=== PATIENT | female | born 1955 | race Caucasian/White ===

== ENCOUNTER 2016-12-26 19:44 | Observation (INO) | payer MEDICARE ==
--- NOTE | 2016-12-26 19:57 | ER Document Report ---
ED Medical Screen (RME) - General Stated Complaint: CHEST PAIN Notes: 61 yo female c/o intermittant chest pain x 30 minutes. left sided, nonradiating. no shortness of breath. no nausea. + HTN, + DM, NO cardiac hx. nonsmoker. pt received 4 325 ASA per EMS report. someone at [facility] gave ASA TRAVEL OUTSIDE OF THE [place] IN LAST 30 DAYS: No - Related Data Allergies/Adverse Reactions: acetaminophen [From Vicodin] Allergy (Verified 08/04/16 15:49) codeine phosphate [From Tylenol-Codeine] Allergy (Verified 08/04/16 15:49) hydrocodone bitartrate [From Vicodin] Allergy (Verified 08/04/16 15:49) Past Medical History - Past Medical History Cardiac Medical History: Reports: Hx Hypercholesterolemia, Hx Hypertension Endocrine Medical History: Reports: Hx Diabetes Mellitus Type 2 Past Surgical History: Reports: Hx Section, Hx Cholecystectomy, Hx Hysterectomy - Immunizations Hx Diphtheria, Pertussis, Tetanus Vaccination: Yes
[2016-12-26 20:47] LABS: ABSOLUTE BASOPHILS # (AUTO) 0.1 10^3/uL (0.0-0.2); ABSOLUTE EOSINOPHILS # (AUTO) 0.4 10^3/uL (0.0-0.6); ABSOLUTE LYMPHOCYTES (AUTO) 2.5 10^3/uL (0.5-4.7); ABSOLUTE MONOCYTES (AUTO) 0.5 10^3/uL (0.1-1.4); ABSOLUTE NEUT (AUTO) 2.9 10^3/uL (1.7-8.2); BASOPHILS % (AUTO) 0.8 % (0-2); EOSINOPHILS % (AUTO) 5.7 % (0-6); HEMOGLOBIN 10.4 g/dL (12.0-15.5); HGB HCT DIFFERENCE 0.2; LYMPHOCYTES % (AUTO) 39.9 % (13-45); MEAN CORPUSCULAR HEMOGLOBIN 29.4 pg (27.0-33.4); MEAN CORPUSCULAR HGB CONC 33.5 g/dL (32.0-36.0); MEAN CORPUSCULAR VOLUME 88 fl (80-97); MONOCYTES % (AUTO) 7.6 % (3-13); RED BLOOD COUNT 3.52 10^6/uL (3.72-5.28); RED CELL DISTRIBUTION WIDTH 13.8 % (11.5-14.0); WHITE BLOOD COUNT 6.3 10^3/uL (4.0-10.5)
[2016-12-26 21:10] LABS: ALANINE AMINOTRANSFERASE 27 U/L (9-52); ALBUMIN 4.4 g/dL (3.5-5.0); ALKALINE PHOSPHATASE 70 U/L (38-126); ANION GAP 14 (5-19); ASPARTATE AMINO TRANSFERASE 26 U/L (14-36); BILIRUBIN,TOTAL 0.8 mg/dL (0.2-1.3); BLOOD UREA NITROGEN 20 mg/dL (7-20); CALCIUM 9.3 mg/dL (8.4-10.2); CARBON DIOXIDE 25 mmol/L (22-30); CHLORIDE 104 mmol/L (98-107); CREATINE KINASE 208 U/L (30-135); CREATININE RESULT 1.19 mg/dL (0.52-1.25); GLUCOSE 253 mg/dL (75-110); POTASSIUM 4.4 mmol/L (3.6-5.0); SODIUM 143.2 mmol/L (137-145); TOTAL PROTEIN 7.1 g/dL (6.3-8.2)
[2016-12-26 21:19] LABS: CREATINE KINASE MB 1.12 ng/mL (<4.55); TROPONIN I < 0.012 ng/mL
--- NOTE | 2016-12-27 02:17 | ER Document Report ---
ED General - General Chief Complaint: Chest Pain > 30 Stated Complaint: CHEST PAIN Notes: Patient is a 61-year-old female presents with complaint of chest pain. Chest pain has been intermittent. She says when it occurs is left-sided pain that is nonradiating no fevers. No vomiting. No diarrhea. No difficulty breathing. Nothing seems to exacerbate the pain. No other complaints at this time. history of coronary disease. No history of recent stress test. TRAVEL OUTSIDE OF THE [place] IN LAST 30 DAYS: No - Related Data Allergies/Adverse Reactions: acetaminophen [From Vicodin] Allergy (Verified 08/04/16 15:49) codeine phosphate [From Tylenol-Codeine] Allergy (Verified 08/04/16 15:49) hydrocodone bitartrate [From Vicodin] Allergy (Verified 08/04/16 15:49) Past Medical History - Social History Smoking Status: Former Smoker Chew tobacco use (# tins/day): No Frequency of alcohol use: None Drug Abuse: None Family History: Reviewed & Not Pertinent Patient has suicidal ideation: No Patient has homicidal ideation: No - Past Medical History Cardiac Medical History: Reports: Hx Hypercholesterolemia, Hx Hypertension Endocrine Medical History: Reports: Hx Diabetes Mellitus Type 2 Renal/ Medical History: Denies: Hx Peritoneal Dialysis Past Surgical History: Reports: Hx Section, Hx Cholecystectomy, Hx Hysterectomy - Immunizations Hx Diphtheria, Pertussis, Tetanus Vaccination: Yes Review of Systems - Review of Systems Notes: My Normal Review Basic REVIEW OF SYSTEMS: CONSTITUTIONAL : Denies fever, chills, or sweats. Denies recent illness. EENT: Denies eye, ear, throat, or mouth pain or symptoms. Denies nasal or sinus congestion. CARDIOVASCULAR: Some chest pain RESPIRATORY: Denies cough, cold, or chest congestion. Denies shortness of breath, difficulty breathing, or wheezing. GASTROINTESTINAL: Denies abdominal pain. Denies nausea, vomiting, or diarrhea. Denies constipation. Last BM: MUSCULOSKELETAL: Denies neck or back pain or joint pain or swelling. SKIN: Denies rash or skin lesions. NEUROLOGICAL: Denies altered mental status or loss of consciousness. Denies headache. Denies weakness or paralysis or loss of use of either side. Denies problems with gait or speech. Denies sensory or motor loss. ALL OTHER SYSTEMS REVIEWED AND NEGATIVE. Physical Exam - Vital signs Vitals: Temp Pulse Resp BP Pulse Ox 98.0 F 71 20 159/82 H 100 12/26/16 19:57 12/26/16 19:57 12/26/16 19:57 12/26/16 19:57 12/26/16 19:57 - Notes Notes: General Appearance: Well nourished, alert, cooperative, no acute distress, no obvious discomfort. Well-appearing. Vitals: reviewed, See vital signs table. Head: no swelling or tenderness to the head Eyes: PERRL, EOMI, Conjuctiva clear Mouth: No decreasd moisture Chest wall: No reproducible tenderness to palpation of chest wall. Neck: Supple, no neck tenderness, No thyromegaly Lungs: No wheezing, No rales, No rhonci, No accessory muscle use, good air exchange bilaterally. Heart: Normal rate, Regular rythm, No murmur, no rub Abdomen: Normal BS, soft, No rigidity, No abdominal tenderness, No guarding, no rebound, no abdominal masses, no organomegaly Extremities: strength 5/5 in all extremities, good pulses in all extremities, no swelling or tenderness in the extremities, no edema. Skin: warm, dry, appropriate color, no rash Neuro: speech clear, oriented x 3, normal affect, responds appropriately to questions. Course - Vital Signs Vital signs: Temp Pulse Resp BP Pulse Ox 98.0 F 71 20 159/82 H 100 12/26/16 19:57 12/26/16 19:57 12/26/16 19:57 12/26/16 19:57 12/26/16 19:57 - Laboratory Result Diagrams: 12/26/16 20:25 12/26/16 20:25 Laboratory results interpreted by me: 12/26/16 12/26/16 20:25 20:25 RBC 3.52 L Hgb 10.4 L Hct 31.0 L Est GFR ( Amer) 56 L Est GFR (Non-Af Amer) 46 L Glucose 253 H Creatine Kinase 208 H - EKG Interpretation by Me Additional EKG results interpreted by me: 12/27/16 02:17 EKG is reviewed and interpreted by me. EKG shows normal sinus rhythm with rate of [address] segment elevation or depression. No ischemic T wave inversions. CT level, QRS duration, QTC intervals are within normal range. Old EKG for comparison is from 02/27/2016. - Transfer of Care Notes: 12/27/16 05:24 Patient is multiple risk factors for coronary disease including hypertension, diabetes, high cholesterol. She has been having intermittent chest pain. Currently she is chest pain-free. I did speak with Dr. Dailey who agrees to admit the patient. Patient agrees with plan to be admitted. Dictation of this chart was performed using voice recognition software; therefore, there may be some unintended grammatical errors. Discharge - Discharge Clinical Impression: Chest pain Qualifiers: Chest pain type: unspecified Qualified Code(s): R07.9 - Chest pain, unspecified Condition: Stable Disposition: ADMITTED OBSERVATION Admitting Provider: Ashlie Unit Admitted: Telemetry
[2016-12-27] MEDS ORDERED: NITROGLYCERIN 2% OINTMENT 1 GM PACKET TP ONE (02:33)
[2016-12-27] MEDS ORDERED: NITROGLYCERIN 0.4 MG/TAB 25 TAB/BOTTLE SL PRN (08:43)
[2016-12-27] MEDS ORDERED: DEXTROSE 50%-WATER 25 GM/50 ML DISP.SYRIN IV PRN ×2 (08:47)
[2016-12-27] MEDS ORDERED: DEXTROSE 40% GEL 15 GM TUBE PO PRN ×2 (08:47)
[2016-12-27] MEDS ORDERED: GLUCAGON,HUMAN RECOMB 1 MG INJ IM PRN (08:47)
--- NOTE | 2016-12-27 09:04 | PDOC H&P ---
History of Present Illness Admission Date/PCP: 12/27/16 04:15 [facility] Patient complains of: chest pain History of Present Illness: MADELEINE VERONICA is a 61 year old female presents to ED with complaint exertional chest pain. 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 She denied any associated radiation of pain into her left shoulder or any other part of her body. No associated diaphoresis, palpitation, nausea or vomiting. Patient reported elevated blood glucose level earlier during the day before her presentation and since arrival at the hospital her level has been elevated. She claimed compliance with her medication and dietary restrictions. She denied any dizziness, headache, fever, chills, coughing or difficulty with her breathing. Past Medical History Cardiac Medical History: Reports: Hyperlipidema, Hypertension Endocrine Medical History: Reports: Diabetes Mellitus Type 2 Past Surgical History Past Surgical History: Reports: Section, Cholecystectomy, Hysterectomy Social History Smoking Status: Former Smoker - Advance Directive Resuscitation Status: Full Code Family History Family History: Reviewed & Not Pertinent Parental Family History Reviewed: Yes Children Family History Reviewed: Yes Sibling(s) Family History Reviewed.: Yes Medication/Allergy Home Medications: Hydrochlorothiazide 08/04/16 Insulin Detemir [Levemir Flextouch] 08/04/16 Insulin Lispro [Humalog] 08/04/16 Sitagliptin Phosphate [Januvia] 08/04/16 Allergies/Adverse Reactions: acetaminophen [From Vicodin] Allergy (Verified 08/04/16 15:49) codeine phosphate [From Tylenol-Codeine] Allergy (Verified 08/04/16 15:49) hydrocodone bitartrate [From Vicodin] Allergy (Verified 08/04/16 15:49) Review of Systems Constitutional: ABSENT: chills, fever(s), headache(s), weight gain, weight loss Eyes: ABSENT: visual disturbances Ears: ABSENT: hearing changes Nose, Mouth, and Throat: ABSENT: as per HPI, headache(s), mouth pain, sore throat, vertigo, other Cardiovascular: PRESENT: as per HPI Respiratory: PRESENT: as per HPI Gastrointestinal: ABSENT: as per HPI, abdominal pain, bloating, coffee ground emesis, constipation, diarrhea, dysphagia, heartburn, hematemesis, hematochezia , melena, nausea, vomiting, other Genitourinary: ABSENT: as per HPI, difficulty urinating, dysuria, hematuria, nocturia, other Musculoskeletal: ABSENT: as per HPI, back pain, deformity, joint swelling, muscle weakness, other Integumentary: ABSENT: as per HPI, diaphoresis, erythema, lesions, pruritus, rash, wounds, other Neurological: ABSENT: as per HPI, abnormal gait, abnormal movements, abnormal speech, confusion, convulsions, dizziness, focal weakness, frequent falls, lack of coordination, memory loss, numbness, paresthesias, restless legs, syncope, tingling, tremor(s), vertigo, weakness, other Psychiatric: ABSENT: anxiety, depression, homidical ideation, suicidal ideation Endocrine: ABSENT: cold intolerance, heat intolerance, menstrual abnormalities, polydipsia, polyuria Hematologic/Lymphatic: ABSENT: easy bleeding, easy bruising, lymphadenopathy Physical Exam Vital Signs: Temp Pulse Resp BP Pulse Ox 98.0 F 65 14 120/57 L 99 12/26/16 19:57 12/27/16 07:10 12/27/16 06:26 12/27/16 06:26 12/27/16 06:26 General appearance: PRESENT: no acute distress, well-developed, well-nourished Head exam: PRESENT: atraumatic, normocephalic Eye exam: PRESENT: conjunctiva pink, EOMI, PERRLA. ABSENT: scleral icterus Ear exam: PRESENT: normal external ear exam Mouth exam: PRESENT: moist, tongue midline Teeth exam: ABSENT: dental caries, dental tenderness, edentulous, poor dentation , other Throat exam: ABSENT: post pharyngeal erythema, tonsillar erythema, tonsillar exudate, tonsillogmegaly, other Neck exam: PRESENT: full ROM. ABSENT: carotid bruit, JVD, lymphadenopathy, thyromegaly Respiratory exam: ABSENT: accessory muscle use, chest wall tenderness, clear to auscultation jenna, crackles, decreased breath sounds, prolonged expiratory phas, rales, retraction, rhonchi, stridor, symmetrical, tachypnea, unlabored, wheezes , other Cardiovascular exam: PRESENT: RRR. ABSENT: diastolic murmur, rubs, systolic murmur Pulses: PRESENT: normal dorsalis pedis pul, +2 pedal pulses bilateral Vascular exam: PRESENT: normal capillary refill GI/Abdominal exam: PRESENT: normal bowel sounds, soft. ABSENT: distended, guarding, mass, organolmegaly, rebound, tenderness Extremities exam: PRESENT: full ROM Musculoskeletal exam: PRESENT: ambulatory, deformity - from joint involvement with arthritis, full ROM Neurological exam: PRESENT: alert, awake, oriented to person, oriented to place , oriented to time, oriented to situation, CN II-XII grossly intact. ABSENT: motor sensory deficit Psychiatric exam: PRESENT: appropriate affect, normal mood. ABSENT: homicidal ideation, suicidal ideation Skin exam: PRESENT: dry, intact, warm. ABSENT: cyanosis, rash Results Impressions: Chest X-Ray 12/26/16 19:58 IMPRESSION: NO SIGNIFICANT RADIOGRAPHIC FINDING IN THE CHEST. Assessment & Plan - Diagnosis (1) Chest pain Qualifiers: Chest pain type: unspecified Qualified Code(s): R07.9 - Chest pain, unspecified Is this a current diagnosis for this admission?: YesPlan: See attending physician orders (2) Type 2 diabetes mellitus with hyperglycemia Qualifiers: Diabetes mellitus extermination supervisor insulin use: with snf use Qualified Code(s): E11.65 - Type 2 diabetes mellitus with hyperglycemia; Z79.4 - watermelon harvesting supervisor (current) use of insulin Is this a current diagnosis for this admission?: YesPlan: See attending physician orders (3) Hypertension Qualifiers: Hypertension type: essential hypertension Qualified Code(s): I10 - Essential (primary) hypertension Is this a current diagnosis for this admission?: YesPlan: See attending physician orders (4) HLD (hyperlipidemia) Qualifiers: Hyperlipidemia type: pure hypercholesterolemia Qualified Code(s): E78.00 - Pure hypercholesterolemia, unspecified; E78.0 - Pure hypercholesterolemia Is this a current diagnosis for this admission?: YesPlan: See attending physician orders - Time Time Spent: 50 to 70 Minutes Medications reviewed and adjusted accordingly: Yes Anticipated discharge: Home Within: within 48 hours - Inpatient Certification Based on my medical assessment, after consideration of the patient's comorbidities, presenting symptoms, or acuity I expect that the services needed warrant INPATIENT care.: No I certify that my determination is in accordance with my understanding of Medicare's requirements for reasonable and necessary INPATIENT services [42 CFR 412.3e].: No - Plan Summary Plan Summary: See attending physician orders
[2016-12-27] MEDS ORDERED: ENOXAPARIN SODIUM INJ 40 MG/0.4 ML DISP.SYRIN SUBCUT ONE (09:30)
[2016-12-27 09:35] LABS: ABSOLUTE BASOPHILS # (AUTO) 0.1 10^3/uL (0.0-0.2); ABSOLUTE EOSINOPHILS # (AUTO) 0.4 10^3/uL (0.0-0.6); ABSOLUTE LYMPHOCYTES (AUTO) 2.2 10^3/uL (0.5-4.7); ABSOLUTE MONOCYTES (AUTO) 0.6 10^3/uL (0.1-1.4); ABSOLUTE NEUT (AUTO) 4.2 10^3/uL (1.7-8.2); EOSINOPHILS % (AUTO) 5.6 % (0-6); HEMATOCRIT 35.7 % (36.0-47.0); HGB HCT DIFFERENCE 0.3; LYMPHOCYTES % (AUTO) 29.6 % (13-45); MEAN CORPUSCULAR HEMOGLOBIN 29.5 pg (27.0-33.4); MEAN CORPUSCULAR HGB CONC 33.6 g/dL (32.0-36.0); MEAN CORPUSCULAR VOLUME 88 fl (80-97); MONOCYTES % (AUTO) 7.6 % (3-13); RED BLOOD COUNT 4.06 10^6/uL (3.72-5.28); RED CELL DISTRIBUTION WIDTH 14.3 % (11.5-14.0); SEGMENTED NEUTROPHILS % (AUTO) 56.2 % (42-78); WHITE BLOOD COUNT 7.5 10^3/uL (4.0-10.5)
[2016-12-27 09:39] LABS: ANION GAP 14 (5-19); BLOOD UREA NITROGEN 18 mg/dL (7-20); CALCIUM 9.7 mg/dL (8.4-10.2); CARBON DIOXIDE 26 mmol/L (22-30); CHLORIDE 104 mmol/L (98-107); CHOLESTEROL 128.32 mg/dL (0-200); CREATINE KINASE 153 U/L (30-135); CREATININE RESULT 1.01 mg/dL (0.52-1.25); Direct HDL 52 mg/dL (>40); GLUCOSE 160 mg/dL (75-110); POTASSIUM 4.5 mmol/L (3.6-5.0); SODIUM 144.4 mmol/L (137-145); TRIGLYCERIDES 117 mg/dL (<150)
[2016-12-27 09:49] LABS: CREATINE KINASE MB 0.76 ng/mL (<4.55)
[2016-12-27 09:50] LABS: DIRECT LDL 56 mg/dL (<100)
[2016-12-27 09:54] LABS: TROPONIN I < 0.012 ng/mL
[2016-12-27] MEDS: ASPIRIN 81 MG TABLET, ENT COATED PO SCH (10:31)
[2016-12-27] MEDS: LANSOPRAZOLE 30 MG TAB.RAP.DR PO SCH (10:35)
--- NOTE | 2016-12-27 11:22 | EKG REPORT ---
SEVERITY:- OTHERWISE NORMAL ECG - SINUS RHYTHM ATRIAL PREMATURE COMPLEX : Confirmed by: Vipin Stubbs 27-Dec-2016 11:21:49
[2016-12-27] MEDS ORDERED: REGADENOSON INJ 0.4 MG/5 ML DISP.SYRIN IV ONE (13:27)
[2016-12-27 16:47] LABS: CREATINE KINASE MB 0.62 ng/mL (<4.55)
[2016-12-27 16:50] LABS: TROPONIN I < 0.012 ng/mL
--- NOTE | 2016-12-27 17:16 | DRAGON STRESS TEST REPORT ---
INTRAVENOUS LEXISCAN CARDIOLITE STRESS TEST USING SINGLE PHOTON EMMISION COMPUTERIZED TOMOGRAPHIC. DATE OF PROCEDURE: December 27, 2016 INDICATION : Chest pain CARDIAC RISK FACTORS: Type II diabetes, hypertension RESTING EKG: Sinus rhythm without any baseline ST segment changes STRESS EKG: No significant changes noted with LexiScan bolus REASON FOR TERMINATION: Protocol. PROCEDURE REPORT: Baseline heart rate 64 beats per minute with blood pressure of 111/78. Patient had no significant complaints. Heart rate at 2 minutes post bolus 80 with a blood pressure of 147/73. 3 minutes post bolus heart rate 79 with blood pressure of 143/72. No significant EKG changes were noted. Patient had no significant complaints during the procedure or postprocedure. CONCLUSIONS: Normal EKG and hemodynamic response to IV LexiScan. NUCLEAR DATA: At rest the patient was given 10.76 millicuries of technetium 99 sestamibi injected intravenously. As per protocol rest gated SPECT images were obtained. Subsequently the patient was given intravenous LexiScan at a dose of 0.4 mg in 5 mL intravenously, followed by flush with normal saline. Subsequently the stress dose of 30.1 millicuries of technetium 99 sestamibi was injected intravenously. As per protocol stress gated images were obtained. NUCLEAR INTERPRETATION: Both raw and processed data were used for interpretation. Visual, qualitative, computer-generated quantitative data was used. There was good myocardial uptake of technetium compound. Motion artifact and soft tissue attenuations were noted. Increased visceral uptake was noted. No definitive areas of transient perfusion defect noted, except for a small area of decreased uptake in the basal and mid inferior wall. This is felt to be mostly artifactual, because of substraction from visceral uptake and diaphragmatic attenuation but cannot rule out an area of mild ischemia. No corresponding regional wall motion abnormalities were noted on gating images. No definitive areas of fixed perfusion defect or scars noted. EKG gated imaging showed LV EF at 62 %, rest and stress gated EF similar visually. T. I D. ratio was 1.09. Lung heart ratio noted to be within normal limits 0.28. No significant extracardiac and abnormal radiotracer activities were noted. RV free wall uptake was noted to be mild increased. IMPRESSION: Also refer to comments under nuclear interpretation. Also test results needs to be interpreted in the context of pretest probability. 1. No definitive areas of transient perfusion defect noted, except for a small area of decreased uptake in the basal and mid inferior wall. This is felt to be mostly artifactual, because of substraction from visceral uptake and diaphragmatic attenuation but cannot rule out an area of mild ischemia. No corresponding regional wall motion abnormalities were noted on gating images. Clinical correlation is requested. 2. There is no definitive scintigraphic evidence of myocardial infarction/scar. 3. EKG gated imaging shows left ejection fraction of approximately 62 %. 4. Clinical correlation requested as occasionally single vessel disease or balanced ischemia could be missed. In approximately 10% of the cases Lexiscan may not cause adequate vasodilatory stress. RECOMMENDATIONS: Aggressive risk factor modification, medical therapy. Clinical correlation with echocardiogram derived ejection fraction. Inability to exercise by itself can lead to increased cardiovascular event risks. Consider cardiology consultation if clinically indicated. I AM AVAILABLE FOR CARDIOLOGY CONSULTATION AND FOLLOWUP IF REQUESTED BY PMMagdalene Stubbs M.D., [employer] senior dentist, Board certified in cardiovascular diseases, Nuclear cardiology, Echocardiography Cardiac CT and cardiac MRI Ph. [phone] [facility] DIVISIONMagdalene
[2016-12-27] MEDS ORDERED: (PENDING PHARMACY ID) (Ranitidine Hcl [Zantac 150 Mg Tablet] 150 MG) PO SCH (18:00)
[2016-12-27] MEDS ORDERED: INSULIN ASPART 8 UNIT SQ SCH (18:00)
[2016-12-27] MEDS: INSULIN LISPRO 100 UNIT/ML 3 ML VIAL SUBCUT PRN ×2 (18:06→21:56)
[2016-12-27] MEDS: PREGABALIN 75 MG CAPSULE PO SCH (21:57)
[2016-12-27] MEDS: FAMOTIDINE 20 MG TABLET PO SCH (21:59)
[2016-12-27] MEDS: METOPROLOL TARTRATE 25 MG TABLET PO SCH (21:59)
[2016-12-27] MEDS ORDERED: INSULIN DETEMIR 100 UNIT/ML 3 ML PEN SUBCUT SCH (22:00)
[2016-12-27] MEDS ORDERED: ATORVASTATIN CALCIUM 40 MG TABLET PO SCH (22:00)
[2016-12-27] MEDS ORDERED: (PENDING PHARMACY ID) (Sertraline Hcl [Zoloft] 25 MG) PO SCH (22:00)
[2016-12-27] MEDS ORDERED: SERTRALINE HCL 50 MG TABLET PO SCH (22:00)
[2016-12-27] MEDS ORDERED: TRAZODONE HCL 50 MG TABLET PO SCH (22:00)
--- NOTE | 2016-12-27 22:10 | EKG REPORT ---
SEVERITY:- NORMAL ECG - SINUS RHYTHM : Confirmed by: Vipin Stubbs 27-Dec-2016 22:10:01
[2016-12-27 22:25] LABS: CREATINE KINASE MB 0.59 ng/mL (<4.55)
[2016-12-27 22:29] LABS: TROPONIN I < 0.012 ng/mL
[2016-12-28] MEDS: LANSOPRAZOLE 30 MG TAB.RAP.DR PO SCH (05:51)
[2016-12-28] MEDS: INSULIN LISPRO 100 UNIT/ML 3 ML VIAL SUBCUT PRN ×2 (07:44→11:56)
[2016-12-28] MEDS ORDERED: ENOXAPARIN SODIUM INJ 40 MG/0.4 ML DISP.SYRIN SUBCUT SCH (08:00)
[2016-12-28] MEDS ORDERED: INSULIN DETEMIR 100 UNIT/ML 3 ML PEN SUBCUT SCH (08:00)
[2016-12-28] MEDS ORDERED: HYDROCHLOROTHIAZIDE 25 MG TABLET PO SCH (08:00)
[2016-12-28] MEDS: METOPROLOL TARTRATE 25 MG TABLET PO SCH (09:00)
[2016-12-28] MEDS: ASPIRIN 81 MG TABLET, ENT COATED PO SCH (09:01)
[2016-12-28] MEDS: PREGABALIN 75 MG CAPSULE PO SCH (09:01)
[2016-12-28] MEDS: FAMOTIDINE 20 MG TABLET PO SCH (09:01)
[2016-12-28] MEDS ORDERED: SITAGLIPTIN PHOSPHATE 50 MG TABLET PO SCH (10:00)
[2016-12-28] MEDS ORDERED: LISINOPRIL 10 MG TABLET PO SCH (10:00)
[2016-12-28] MEDS ORDERED: CETIRIZINE 5 MG TABLET PO SCH (10:00)
[2016-12-28] MEDS ORDERED: (PENDING PHARMACY ID) (Levocetirizine Dihydrochloride [Xyzal 5 Mg Tablet] 5 MG) PO SCH (10:00)
[2016-12-28 12:02] VITALS: BP 118/54
--- NOTE | 2016-12-28 13:00 | PDOC DISCHARGE SUMMARY ---
General - Admit/Disc Date/PCP Admission Date/Primary Care Provider: 12/27/16 08:39 [facility] Discharge Date: 12/28/16 - Discharge Diagnosis (1) Chest pain Is this a current diagnosis for this admission?: Yes (2) Type 2 diabetes mellitus with hyperglycemia Is this a current diagnosis for this admission?: Yes (3) Hypertension Is this a current diagnosis for this admission?: Yes (4) HLD (hyperlipidemia) Is this a current diagnosis for this admission?: Yes - Additional Information Resuscitation Status: Full Code Discharge Diet: Cardiac, Diabetic Discharge Activity: Activity As Tolerated, Slowly Increase Activity Home Medications: Atorvastatin Calcium [Lipitor 40 mg Tablet] 40 mg PO QHS 12/27/16 Eluxadoline [Viberzi] 75 mg PO Q12 12/27/16 Hydrochlorothiazide [Hydrodiuril 25 mg Tablet] 25 mg PO QAM 12/27/16 Insulin Aspart [Novolog Flexpen] 8 unit SQ TID 12/27/16 Insulin Detemir [Levemir Flextouch] 20 unit SQ QHS 12/27/16 Insulin Detemir [Levemir Flextouch] 40 unit SQ QAM 12/27/16 Levocetirizine Dihydrochloride [Xyzal 5 mg Tablet] 5 mg PO DAILY 12/27/16 Lisinopril [Prinivil 40 mg Tablet] 40 mg PO DAILY 12/27/16 Pregabalin [Lyrica 75 mg Capsule] 75 mg PO Q12 12/27/16 Ranitidine HCl [Zantac 150 mg Tablet] 150 mg PO BID 12/27/16 Sertraline HCl [Zoloft] 25 mg PO QHS 12/27/16 Sitagliptin Phosphate [Januvia 50 mg Tablet] 50 mg PO DAILY 12/27/16 Trazodone HCl [Desyrel 50 mg Tablet] 50 mg PO QHS 12/27/16 Aspirin [Ecotrin 81 mg EC Tablet] 81 mg PO DAILY #30 tabec 12/28/16 Metoprolol Tartrate [Lopressor 25 mg Tablet] 12.5 mg PO Q12 #60 tablet 12/28/16 Nitroglycerin [Nitrostat 0.4 mg (1/150 Gr) Tabs 25/Bottle] 1 tab SL Q5MP PRN #1 bottle 12/28/16 History of Present Illness History of Present Illness: MADELEINE VERONICA is a 61 year old female presents to ED with complaint exertional chest pain. 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 She denied any associated radiation of pain into her left shoulder or any other part of her body. No associated diaphoresis, palpitation, nausea or vomiting. Patient reported elevated blood glucose level earlier during the day before her presentation and since arrival at the hospital her level has been elevated. She claimed compliance with her medication and dietary restrictions. She denied any dizziness, headache, fever, chills, coughing or difficulty with her breathing. Hospital Course Hospital Course: Patient's cardiac evaluation with serial cardiac enzymes and EKG were unrevealing. In view of her comorbidities, she had pharmacological cardiolite stress test on 12/27/2016. Per interpretation by Dr. Prince there was an area of interest that need further evaluation. There was recommendation for medical management optimization regarding her comorbidities. Her complete TTE completed on 11/14/[address] Prince did revealed LVEF of 60% with stage I/IV diastolic dysfunction and incomplete segmental wall analysis. She was started on Metoprolol and Aspirin therapy. She will continue on GIL-I and statin management. Her hyperglycemia remain a concern but further adjustment to medication management will be accomplished on outpatient follow up. Patient denied any chest pain or difficulty with her breathing. She has been tolerating medication management. She is agreeable to discharge home today. I had extensive counseling with her regarding lifestyle and dietary modification at bedside before discharge home today. Physical Exam Vital Signs: Temp Pulse Resp BP Pulse Ox 97.9 F 66 20 118/54 L 97 12/28/16 11:21 12/28/16 11:21 12/28/16 11:21 12/28/16 11:21 12/28/16 11:21 Intake & Output 12/27/16 12/28/16 12/29/16 06:59 06:59 06:59 Intake Total 556 Output Total 1000 Balance -444 General appearance: PRESENT: no acute distress, well-developed, well-nourished Head exam: PRESENT: atraumatic, normocephalic Eye exam: PRESENT: conjunctiva pink, EOMI, PERRLA. ABSENT: scleral icterus Mouth exam: PRESENT: moist, tongue midline Neck exam: PRESENT: full ROM. ABSENT: carotid bruit, JVD, lymphadenopathy, thyromegaly Respiratory exam: ABSENT: accessory muscle use, chest wall tenderness, clear to auscultation jenna, crackles, decreased breath sounds, prolonged expiratory phas, rales, retraction, rhonchi, stridor, symmetrical, tachypnea, unlabored, wheezes , other Cardiovascular exam: PRESENT: RRR. ABSENT: diastolic murmur, rubs, systolic murmur Pulses: PRESENT: normal dorsalis pedis pul, +2 pedal pulses bilateral Vascular exam: PRESENT: normal capillary refill GI/Abdominal exam: PRESENT: normal bowel sounds, soft. ABSENT: distended, guarding, mass, organolmegaly, rebound, tenderness Extremities exam: PRESENT: full ROM Musculoskeletal exam: PRESENT: ambulatory, deformity - due to arthiritis involvement of multiple joints, full ROM Neurological exam: PRESENT: alert, awake, oriented to person, oriented to place , oriented to time, oriented to situation, CN II-XII grossly intact. ABSENT: motor sensory deficit Psychiatric exam: PRESENT: appropriate affect, normal mood. ABSENT: homicidal ideation, suicidal ideation Skin exam: PRESENT: dry, intact, warm. ABSENT: cyanosis, rash Results Laboratory Results: 12/27/16 09:09 12/27/16 09:09 12/27/16 12/27/16 12/27/16 09:09 09:09 15:13 Creatine Kinase 153 H 135 CK-MB (CK-2) 0.76 Troponin I < 0.012 12/27/16 12/27/16 12/27/16 15:13 21:22 21:22 Creatine Kinase 121 CK-MB (CK-2) 0.62 0.59 Troponin I < 0.012 < 0.012 Impressions: Chest X-Ray 12/26/16 19:58 IMPRESSION: NO SIGNIFICANT RADIOGRAPHIC FINDING IN THE CHEST. Qualifiers PATEINT BEING DISCHARGED WITH ANY OF THE FOLLOWING DIAGNOSIS?: No Plan Discharge Plan: D/C home today. Follow up as instructed upon discharge. Time Spent: Less than 30 Minutes
== END 2016-12-28 13:36 | disposition home or self-care (01) ==
LOC: ER 19:44 → UNDOADMOB 12-27 04:15 → EH 12-27 04:15 → 5 12-27 06:42 → EH 12-27 08:39 → 5 12-27 08:39
PROVIDERS: ADMIT Internal Medicine Geriatric Medicine; ATTEND Internal Medicine Geriatric Medicine
DX: R07.9 Chest pain, unspecified (principal); E11.65 Type 2 diabetes mellitus with hyperglycemia; Z79.4 Long term (current) use of insulin; I10 Essential (primary) hypertension; E78.5 Hyperlipidemia, unspecified; Z87.891 Personal history of nicotine dependence
CPT/HCPCS: 93005 ×2; 99285; 36415 ×2; 82553 ×2; 82962 ×2; 82550 ×2; 85025 ×2; 80048; 80053; 84484 ×2; 83036; 80061; 93017; 71020; 78452; 93010; G0378 ×2; A9500; J2785; A9270 ×17; J1650 ×2; Q9969; J1815; J3490

== ENCOUNTER 2019-10-15 08:21 | Day surgery (SDC) | payer MEDICARE, MEDICAID ==
[~2019-10-15 08:21] MED LIST: CHONDR SU A NA/HYALUR INTRAOC KIT (SURGICARE) ONE; EPINEPHRINE INJ/PF 1 MG/1 ML AMPULE ONE; KETOROLAC TROMETHAMINE 0.45% 4 DROP/0.4 ML DROPERETTE OS PRN; LIDOCAINE 1%/PHENYLEPHRINE 1.5% 1 ML VIAL ONE
[2019-10-15] MEDS: TROPICAMIDE 1% OPH SOLN 15 ML OS PRN ×3 (09:35→10:00)
[2019-10-15] MEDS: TETRACAINE HCL 0.5% OPH SOLN 4 ML OS PRN ×3 (09:35→10:22)
[2019-10-15] MEDS: CYCLOPENTOLATE 0.2%/PHENYLEPHRINE 1% OPH SOLN 2 ML OS PRN ×3 (09:35→10:00)
[2019-10-15] MEDS: BESIFLOXACIN HCL 0.6% OPH SUSP 5 ML BOTTLE OS PRN ×4 (09:35→10:42)
[2019-10-15] MEDS ORDERED: FENTANYL CITRATE INJ/PF 100 MCG/2 ML AMPUL ONE (10:15)
[2019-10-15] MEDS ORDERED: MIDAZOLAM 2 MG/2 ML INJ ONE (10:15)
[2019-10-15] MEDS: DORZOLAMIDE HCL 2%/TIMOLOL MALEAT 0.5% OPH SOLN 10 ML OS PRN ×2 (10:36→10:42)
--- NOTE | 2019-10-15 13:19 | Operative Report ---
Operative Report-[facility] Operative Report: DATE OF SURGERY: 10/15 2019 PREOPERATIVE DIAGNOSIS: Cataracts, left eye POSTOPERATIVE DIAGNOSIS: Cataract, left eye OPERATION: Cataract extraction with insertion of an IOL of the left eye. Intraocular Lens Model: [21.0 sn60wf] reason for surgery was difficulty seeing medicine bottles SURGEON: William Spencer MD ANESTHESIA: Topical PROCEDURE: After obtaining appropriate consent, the patient's left eye was prepped and draped in a sterile fashion as well as the surgeon in the sterile manner and cataract surgery was started. First a paracentesis blade was used to make a side-port incision. Viscoelastic was used to inflate the anterior chamber. Next a 2.4 mm incision was made with a 2.4 mm blade, clear corneal temporarily. A continuous capsulorrhexis was made using a cystotome and Utrata forceps. Following this hydrodissection was carried out to make the lens fully loose and mobile and it was rotated 90 degrees. Following this, a divide and conquer technique was used to phacoemulsify the lens. The remaining cortex was removed with an irrigation/aspiration. Provisc was instilled into the capsular bag to inflate the bag.The intraocular lens was placed. The remaining viscoelastic material was removed with irrigation/aspiration. Following this, the incision was found to be watertight. Besivance and Cosopt was instilled into the eye and a protective shield was placed over the eye. The patient was returned to the postoperative recovery in a stable condition.
== END 2019-10-15 11:31 | disposition home or self-care (01) ==
LOC: SC 08:21
PROVIDERS: ATTEND Internal Medicine
DX: H25.813 Combined forms of age-related cataract, bilateral (principal); E11.9 Type 2 diabetes mellitus without complications; I10 Essential (primary) hypertension; Z79.4 Long term (current) use of insulin; Z79.899 Other long term (current) drug therapy; K74.60 Unspecified cirrhosis of liver
CPT/HCPCS: 66984; 82962; 00142; V2632; J2250; J3490 ×2; A9270; J0171; J3010; J2370; 142

== ENCOUNTER 2019-11-12 08:48 | Day surgery (SDC) | payer MEDICARE, MEDICAID ==
[~2019-11-12 08:48] MED LIST changes: +KETOROLAC TROMETHAMINE 0.45% 4 DROP/0.4 ML DROPERETTE OD PRN; -KETOROLAC TROMETHAMINE 0.45% 4 DROP/0.4 ML DROPERETTE OS PRN
[2019-11-12] MEDS: CYCLOPENTOLATE 0.2%/PHENYLEPHRINE 1% OPH SOLN 2 ML OD PRN ×3 (10:10→10:30)
[2019-11-12] MEDS: TETRACAINE HCL 0.5% OPH SOLN 4 ML OD PRN ×3 (10:10→10:47)
[2019-11-12] MEDS: TROPICAMIDE 1% OPH SOLN 15 ML OD PRN ×3 (10:10→10:30)
[2019-11-12] MEDS: BESIFLOXACIN HCL 0.6% OPH SUSP 5 ML BOTTLE OD PRN ×4 (10:10→11:09)
[2019-11-12] MEDS ORDERED: MIDAZOLAM 2 MG/2 ML INJ ONE (10:56)
[2019-11-12] MEDS ORDERED: FENTANYL CITRATE INJ/PF 100 MCG/2 ML AMPUL ONE (10:56)
[2019-11-12] MEDS: DORZOLAMIDE HCL 2%/TIMOLOL MALEAT 0.5% OPH SOLN 10 ML OD PRN ×2 (11:09)
--- NOTE | 2019-11-12 13:21 | Operative Report ---
Operative Report-[facility] Operative Report: DATE OF SURGERY: 11/02/2019 PREOPERATIVE DIAGNOSIS: Cataract, right eye POSTOPERATIVE DIAGNOSIS: Cataract, right eye OPERATION: Cataract extraction with insertion of an IOL of the right eye. Intraocular Lens Model: [20.0 sn60wf] Reason for surgery is difficulty seeing road signs SURGEON: William Spnecer MD ANESTHESIA: Topical PROCEDURE: After obtaining appropriate consent, the patient's right eye was prepped and draped in a sterile fashion as well as the surgeon in the sterile manner and cataract surgery was started. First a paracentesis blade was used to make a side-port incision. Viscoelastic was used to inflate the anterior chamber. Next a 2.4 mm incision was made with a 2.4 mm blade, clear corneal temporarily. A continuous capsulorrhexis was made using a cystotome and Utrata forceps. Following this hydrodissection was carried out to make the fazal fully loose and mobile and it was rotated. Following this, a divide and conquer technique was used to phacoemulsify the fazal. The remaining cortex was removed with an irrigation/aspiration. Provisc was instilled into the capsular bag to inflate the bag. The intraocular lens was placed. The remaining viscoelastic material was removed with irrigation/aspiration. Following this, the incision was found to be watertight. Besivance and Cosopt was instilled into the eye and a protective shield was placed over the eye. The patient was reurned to the postoperative recovery in a stable condition.
== END 2019-11-12 11:50 | disposition home or self-care (01) ==
LOC: SC 08:48
PROVIDERS: ATTEND Internal Medicine
DX: H25.811 Combined forms of age-related cataract, right eye (principal); Z96.1 Presence of intraocular lens; I10 Essential (primary) hypertension; E11.9 Type 2 diabetes mellitus without complications; Z79.84 Long term (current) use of oral hypoglycemic drugs; Z79.4 Long term (current) use of insulin; Z79.899 Other long term (current) drug therapy; Z88.5 Allergy status to narcotic agent; Z88.6 Allergy status to analgesic agent
CPT/HCPCS: 66984; 82962; 00142; V2632; J2250; J3490 ×2; A9270; J0171; J3010; J2370; 142

== ENCOUNTER 2020-01-26 17:17 | Emergency (ER) | payer MEDICARE, MEDICAID ==
[2020-01-26] MEDS ORDERED: ASPIRIN 81 MG TABLET, CHEWABLE PO ONE (17:35)
--- NOTE | 2020-01-26 17:37 | ER Document Report ---
ED Medical Screen (RME) - General Chief Complaint: Chest Pain Stated Complaint: CHEST PAIN Time Seen by Provider: 01/26/20 17:31 Primary Care Provider: DARIA LEBLANC MD [Primary Care Provider] - Follow up as needed Mode of Arrival: Ambulatory Information source: Patient Notes: Patient presents complaining of chest pain off and on that started today. Patient denies any cough cold symptoms or shortness of breath. Patient denies any nausea or vomiting. Patient does report she had some lightheadedness earlier today but that has since resolved. hx: Hypertension, diabetes, dyslipidemia, IBSD I have greeted and performed a rapid initial assessment of this patient. A comprehensive ED assessment and evaluation of the patient, analysis of test results and completion of the medical decision making process will be conducted by additional ED providers. TRAVEL OUTSIDE OF THE [place] IN LAST 30 DAYS: No - Related Data Allergies/Adverse Reactions: acetaminophen [From Vicodin] Allergy (Verified 01/26/20 17:29) codeine phosphate [From Tylenol-Codeine] Allergy (Verified 01/26/20 17:29) hydrocodone bitartrate [From Vicodin] Allergy (Verified 01/26/20 17:29) Past Medical History - Past Medical History Cardiac Medical History: Reports: Hx Hypercholesterolemia, Hx Hypertension Denies: Hx Heart Attack Pulmonary Medical History: Denies: Hx Asthma Neurological Medical History: Reports: Hx Seizures - TWICE A CHILD. Denies: Hx Cerebrovascular Accident Endocrine Medical History: Reports: Hx Diabetes Mellitus Type 2 Renal/ Medical History: Denies: Hx Peritoneal Dialysis GI Medical History: Denies: Hx Hepatitis, Hx Hiatal Hernia, Hx Ulcer Psychiatric Medical History: Reports: Hx Depression - after mom passed in 2014 Infectious Medical History: Denies: Hx Hepatitis Past Surgical History: Reports: Hx Section, Hx Cholecystectomy, Hx Hysterectomy - 2004. Denies: Hx Mastectomy, Hx Open Heart Surgery, Hx Pacemaker - Immunizations Hx Diphtheria, Pertussis, Tetanus Vaccination: Yes Physical Exam - Vital signs Vitals: Temp Pulse Resp BP Pulse Ox 98.0 F 74 16 143/64 H 95 01/26/20 17:28 01/26/20 17:28 01/26/20 17:28 01/26/20 17:28 01/26/20 17:28 - Respiratory Respiratory status: No respiratory distress Chest status: Nontender - Cardiovascular Rhythm: Regular Heart sounds: S1 appreciated, S2 appreciated Murmur: No Course - Vital Signs Vital signs: Temp Pulse Resp BP Pulse Ox 98.0 F 74 16 143/64 H 95 01/26/20 17:28 01/26/20 17:28 01/26/20 17:28 01/26/20 17:28 01/26/20 17:28 Doctor's Discharge - Discharge Referrals: DARIA LEBLANC MD [Primary Care Provider] - Follow up as needed
[2020-01-26 18:11] LABS: ABSOLUTE BASOPHILS # (AUTO) 0.1 10^3/uL (0.0-0.2); ABSOLUTE EOSINOPHILS # (AUTO) 0.4 10^3/uL (0.0-0.6); ABSOLUTE LYMPHOCYTES (AUTO) 2.5 10^3/uL (0.5-4.7); ABSOLUTE MONOCYTES (AUTO) 0.6 10^3/uL (0.1-1.4); ABSOLUTE NEUT (AUTO) 3.7 10^3/uL (1.7-8.2); BASOPHILS % (AUTO) 0.9 % (0-2); EOSINOPHILS % (AUTO) 5.7 % (0-6); HEMATOCRIT 36.2 % (36.0-47.0); HEMOGLOBIN 12.3 g/dL (12.0-15.5); LYMPHOCYTES % (AUTO) 33.8 % (13-45); MEAN CORPUSCULAR HEMOGLOBIN 30.4 pg (27.0-33.4); MEAN CORPUSCULAR HGB CONC 33.9 g/dL (32.0-36.0); MEAN CORPUSCULAR VOLUME 90 fl (80-97); MONOCYTES % (AUTO) 8.5 % (3-13); PLATELET COUNT 213 10^3/uL (150-450); RED BLOOD COUNT 4.04 10^6/uL (3.72-5.28); SEGMENTED NEUTROPHILS % (AUTO) 51.1 % (42-78); TOTAL CELLS COUNTED % (AUTO) 100 %; WHITE BLOOD COUNT 7.3 10^3/uL (4.0-10.5)
[2020-01-26 18:27] LABS: ALBUMIN 4.6 g/dL (3.5-5.0); ALKALINE PHOSPHATASE 58 U/L (38-126); ANION GAP 14 (5-19); ASPARTATE AMINO TRANSFERASE 40 U/L (14-36); BILIRUBIN,DIRECT 0.3 mg/dL (0.0-0.4); BILIRUBIN,TOTAL 0.9 mg/dL (0.2-1.3); BLOOD UREA NITROGEN 19 mg/dL (7-20); CALCIUM 9.4 mg/dL (8.4-10.2); CARBON DIOXIDE 29 mmol/L (22-30); CHLORIDE 98 mmol/L (98-107); GLUCOSE 175 mg/dL (75-110); POTASSIUM 4.3 mmol/L (3.6-5.0); TOTAL PROTEIN 7.9 g/dL (6.3-8.2)
--- NOTE | 2020-01-26 18:27 | RADIOLOGY REPORT (SQ) ---
EXAM DESCRIPTION: CHEST 2 VIEWS COMPLETED DATE/TIME: 01/26/2020 5:48 pm REASON FOR STUDY: cp COMPARISON: 2017 TECHNIQUE: Frontal and lateral radiographic views of the chest acquired. NUMBER OF VIEWS: Two view. LIMITATIONS: None. FINDINGS: LUNGS AND PLEURA: No opacities, masses or pneumothorax. No pleural effusion. MEDIASTINUM AND HILAR STRUCTURES: No masses or contour abnormalities. HEART AND VASCULAR STRUCTURES: Heart normal size. No evidence for failure. BONES: No acute findings. HARDWARE: None in the chest. OTHER: No other significant finding. IMPRESSION: NO SIGNIFICANT RADIOGRAPHIC FINDING IN THE CHEST. TECHNICAL DOCUMENTATION: JOB ID: [id number] 2010 [employer]- All Rights Reserved Reading location - IP/workstation name: [email or web address]
--- NOTE | 2020-01-26 18:53 | EKG REPORT ---
SEVERITY:- NORMAL ECG - SINUS RHYTHM : Confirmed by: Tien Galicia MD 26-Jan-2020 18:52:33
--- NOTE | 2020-01-26 21:15 | ER Document Report ---
ED General - General Chief Complaint: Chest Pain Stated Complaint: CHEST PAIN Time Seen by Provider: 01/26/20 17:31 Primary Care Provider: DARIA LEBLANC MD [Primary Care Provider] - Follow up as needed Mode of Arrival: Ambulatory Notes: triage notes Patient presents complaining of chest pain off and on that started today. Patient denies any cough cold symptoms or shortness of breath. Patient denies any nausea or vomiting. Patient does report she had some lightheadedness earlier today but that has since resolved. hx: Hypertension, diabetes, dyslipidemia, IBSD 64-year-old female arrives with her [id number] with chief complaint of on and off squeezing pain midsternal epigastric area since the early a.m. hours. She was diagnosed by a stress test 3 years ago with angina. Patient denies any smoking or drinking. She says she is from [place] and has not had anything alcohol to drink in 30 years. She denies any history of PUD or gastritis or GERD. Patient has not taken her nitroglycerin tablets because it was not a intense chest pain that she can recall today. She denies any shortness of breath diaphoresis skin rash cephalgia referral of pain patient proctor s drink coffee. 3 cups/day denies any overuse or exertion. She usually cuts the grass or cleans the house but has not been doing this over the last several days. TRAVEL OUTSIDE OF THE [place] IN LAST 30 DAYS: No - Related Data Allergies/Adverse Reactions: acetaminophen [From Vicodin] Allergy (Verified 01/26/20 17:29) codeine phosphate [From Tylenol-Codeine] Allergy (Verified 01/26/20 17:29) hydrocodone bitartrate [From Vicodin] Allergy (Verified 01/26/20 17:29) Past Medical History - General Information source: Patient - Social History Smoking Status: Former Smoker Cigarette use (# per day): No Chew tobacco use (# tins/day): No Smoking Education Provided: No Frequency of alcohol use: None Drug Abuse: Marijuana Lives with: Family Family History: Reviewed & Not Pertinent Patient has suicidal ideation: No Patient has homicidal ideation: No - Past Medical History Cardiac Medical History: Reports: Hx Hypercholesterolemia, Hx Hypertension Denies: Hx Heart Attack Pulmonary Medical History: Denies: Hx Asthma Neurological Medical History: Reports: Hx Seizures - TWICE A CHILD. Denies: Hx Cerebrovascular Accident Endocrine Medical History: Reports: Hx Diabetes Mellitus Type 2 Renal/ Medical History: Denies: Hx Peritoneal Dialysis GI Medical History: Denies: Hx Hepatitis, Hx Hiatal Hernia, Hx Ulcer Psychiatric Medical History: Reports: Hx Depression - after mom passed in 2014 Infectious Medical History: Denies: Hx Hepatitis Past Surgical History: Reports: Hx Section, Hx Cholecystectomy, Hx Hysterectomy - 2004. Denies: Hx Mastectomy, Hx Open Heart Surgery, Hx Pacemaker - Immunizations Hx Diphtheria, Pertussis, Tetanus Vaccination: Yes Review of Systems - Review of Systems Constitutional: No symptoms reported EENT: No symptoms reported Cardiovascular: See HPI, Chest pain Respiratory: No symptoms reported Gastrointestinal: See HPI, Abdominal pain - epigastric Genitourinary: No symptoms reported Female Genitourinary: No symptoms reported Musculoskeletal: No symptoms reported Skin: No symptoms reported Hematologic/Lymphatic: No symptoms reported Neurological/Psychological: No symptoms reported Physical Exam - Vital signs Vitals: Temp Pulse Resp BP Pulse Ox 98.0 F 74 16 143/64 H 95 01/26/20 17:28 01/26/20 17:28 01/26/20 17:28 01/26/20 17:28 01/26/20 17:28 Interpretation: Normal - HEENT Head: Normocephalic Eyes: Normal Conjunctiva: Normal Cornea: Normal Extraocular movements intact: Yes Eyelashes: Normal Pupils: PERRL Mouth/Lips: Normal Mucous membranes: Normal Pharynx: Normal Neck: Normal - Respiratory Respiratory status: No respiratory distress Chest status: Nontender Breath sounds: Normal Chest palpation: Normal - Cardiovascular Rhythm: Regular Heart sounds: Normal auscultation Murmur: No Friction rub: No Lee's crunch: No - Abdominal Inspection: Normal Distension: No distension Bowel sounds: Normal Tenderness: Nontender Organomegaly: No organomegaly - Back Back: Normal - Extremities General upper extremity: Normal inspection General lower extremity: Normal inspection - Neurological Neuro grossly intact: Yes Cognition: Normal Orientation: AAOx4, Disoriented to events [place] Coma Scale Eye Opening: Spontaneous [place] Coma Scale Verbal: Oriented [place] Coma Scale Motor: Obeys Commands [place] Coma Scale Total: 15 Speech: Normal Cranial nerves: Normal Cerebellar coordination: Normal Motor strength normal: LUE, RUE, LLE, RLE - Psychological Associated symptoms: Normal affect - Skin Skin Temperature: Warm Skin Moisture: Dry Course - Vital Signs Vital signs: Temp Pulse Resp BP Pulse Ox 98.0 F 74 15 127/78 H 98 01/26/20 17:28 01/26/20 17:28 01/26/20 22:01 01/26/20 22:01 01/26/20 22:01 - Laboratory Result Diagrams: 01/26/20 17:42 01/26/20 17:42 Laboratory results interpreted by me: 01/26/20 17:42 Creatinine 1.31 H Est GFR ( Amer) 50 L Est GFR (MDRD) Non-Af 41 L Glucose 175 H AST 40 H - Diagnostic Test Radiology reviewed: Reports reviewed - EKG Interpretation by Me EKG shows normal: Sinus rhythm Rate: Normal Rhythm: NSR Critical Care Note - Critical Care Note Total time excluding time spent on procedures (mins): 90 Comments: I advised patient and relative of the negative findings of troponins and other labs. Discharge - Discharge Clinical Impression: Angina at rest, GERD (gastroesophageal reflux disease) Disposition: HOME, SELF-CARE Additional Instructions: Follow-up with personal doctor this week return to ER as needed take medicines as directed encourage fluids Referrals: DARIA LEBLANC MD [Primary Care Provider] - Follow up as needed
[2020-01-27 00:25] VITALS: BP 126/84
== END 2020-01-27 00:27 | disposition home or self-care (01) ==
LOC: ER 17:17
DX: I20.9 Angina pectoris, unspecified (principal); K21.9 Gastro-esophageal reflux disease without esophagitis; I10 Essential (primary) hypertension; E11.9 Type 2 diabetes mellitus without complications; R10.13 Epigastric pain; F12.10 Cannabis abuse, uncomplicated; Z87.891 Personal history of nicotine dependence; Z90.49 Acquired absence of other specified parts of digestive tract; Z87.19 Personal history of other diseases of the digestive system; Z88.8 Allergy status to other drugs, medicaments and biological substances; Z88.6 Allergy status to analgesic agent; Z88.5 Allergy status to narcotic agent
CPT/HCPCS: 93005; 99291; 99292; 36415; 85025; 80053; 84484; 71046; 93010; A9270

== ENCOUNTER 2020-06-13 23:00 | Emergency (ER) | payer MEDICARE, MEDICAID ==
[2020-06-13] MEDS ORDERED: NORMAL SALINE 1000 ML 1,000 ML IV ONE (23:48)
--- NOTE | 2020-06-13 23:51 | ER Document Report ---
ED General - General Chief Complaint: Possible Overdose Stated Complaint: POSSIBLE OVERDOSE Time Seen by Provider: 06/13/20 23:30 Primary Care Provider: DARIA LEBLANC MD [Primary Care Provider] - Follow up as needed Mode of Arrival: Medic Information source: Relative - Daughter, Emergency Med Personnel Notes: 64-year-old female patient presenting to the emergency department with altered mental status, shaking and incomprehensible speech. Patient's daughter reports that she had to 50 mg at a bowls at 7 PM. She states at 8:00 the patient started having generalized shaking, and they tried to put her to bed and by 9:00 she was unable to speak. They think this is an adverse reaction to ingesting the edible. They report she has had edibles in the past of a higher milligram without any issue. TRAVEL OUTSIDE OF THE [place] IN LAST 30 DAYS: No - Related Data Allergies/Adverse Reactions: acetaminophen [From Vicodin] Allergy (Verified 01/26/20 17:29) codeine phosphate [From Tylenol-Codeine] Allergy (Verified 01/26/20 17:29) hydrocodone bitartrate [From Vicodin] Allergy (Verified 01/26/20 17:29) Past Medical History - General Information source: Patient - Social History Smoking Status: Current Every Day Smoker Frequency of alcohol use: Occasional Drug Abuse: Marijuana - SMOKES AND EATS EDIBLES Family History: Reviewed & Not Pertinent - Past Medical History Cardiac Medical History: Reports: Hx Hypercholesterolemia, Hx Hypertension Denies: Hx Heart Attack Pulmonary Medical History: Denies: Hx Asthma Neurological Medical History: Reports: Hx Seizures - TWICE A CHILD. Denies: Hx Cerebrovascular Accident Endocrine Medical History: Reports: Hx Diabetes Mellitus Type 2 Renal/ Medical History: Denies: Hx Peritoneal Dialysis GI Medical History: Denies: Hx Hepatitis, Hx Hiatal Hernia, Hx Ulcer Psychiatric Medical History: Reports: Hx Depression - after mom passed in 2014 Infectious Medical History: Denies: Hx Hepatitis Past Surgical History: Reports: Hx Section, Hx Cholecystectomy, Hx Hysterectomy - 2004. Denies: Hx Mastectomy, Hx Open Heart Surgery, Hx Pacemaker - Immunizations Hx Diphtheria, Pertussis, Tetanus Vaccination: Yes Review of Systems - Review of Systems Neurological/Psychological: Confusion, Anxiety, Tremor Physical Exam - Vital signs Vitals: Pulse Ox 87 L 06/13/20 23:08 - Notes Notes: PHYSICAL EXAMINATION: GENERAL: Disheveled but in no acute distress. HEAD: Atraumatic, normocephalic. EYES: Pupils equal round and reactive to light, extraocular movements intact, conjunctiva are normal. ENT: Nares patent, oropharynx clear without exudates. Moist mucous membranes. NECK: Normal range of motion, supple without lymphadenopathy LUNGS: Breath sounds clear to auscultation bilaterally and equal. No wheezes rales or rhonchi. HEART: Regular rate and rhythm without murmurs ABDOMEN: Soft, nontender, nondistended abdomen. No guarding, no rebound. No masses appreciated. Female : deferred Musculoskeletal: Normal range of motion, no pitting or edema. No cyanosis. NEUROLOGICAL: Cranial nerves grossly intact. Slurred speech. Normal sensory, motor exams PSYCH: Normal mood, normal affect. SKIN: Warm, Dry, normal turgor, no rashes or lesions noted. Course - Re-evaluation Re-evalutation: Patient appears well, nontoxic. Her work-up today has been reassuring. She was sent for a head CT which was unremarkable. After several hours of monitoring patient's feeling much better, she is awake, alert, oriented and denies any acute complaints. She reports now that she started feeling the room spinning around her about 45 minutes after she ate the edible marijuana filled food. I encouraged her to please not to do this again. She will follow-up with her primary care. - Vital Signs Vital signs: Temp Pulse Resp BP Pulse Ox 98.2 F 20 127/74 H 100 06/13/20 23:09 06/14/20 03:46 06/14/20 03:46 06/14/20 03:46 - Laboratory Result Diagrams: 06/13/20 23:15 06/13/20 23:15 Laboratory results interpreted by me: 06/13/20 06/13/20 23:15 23:15 RBC 3.62 L Hgb 11.0 L Hct 32.4 L Sodium 135.6 L BUN 25 H Creatinine 1.37 H Est GFR ( Amer) 47 L Est GFR (MDRD) Non-Af 39 L Glucose 141 H - EKG Interpretation by Me EKG shows normal: Sinus rhythm Rate: Normal Rhythm: NSR Additional EKG results interpreted by me: 06/14/20 05:15 EKG was reviewed by me shows a normal sinus rhythm, rate of 65, normal axis, normal intervals. No ST segment elevations or depressions to suggest ischemia. Discharge - Discharge Clinical Impression: marijuana edible overdose Condition: Stable Disposition: HOME, SELF-CARE Additional Instructions: Please refrain from using marijuana edibles in the future. Please follow-up with your primary care provider. Return to the emergency department with any new or worsening concerns. Referrals: DARIA LEBLANC MD [Primary Care Provider] - Follow up as needed
[2020-06-13 23:56] LABS: ABSOLUTE EOSINOPHILS # (AUTO) 0.1 10^3/uL (0.0-0.6); ABSOLUTE LYMPHOCYTES (AUTO) 1.6 10^3/uL (0.5-4.7); ABSOLUTE MONOCYTES (AUTO) 0.6 10^3/uL (0.1-1.4); ABSOLUTE NEUT (AUTO) 5.9 10^3/uL (1.7-8.2); BASOPHILS % (AUTO) 0.5 % (0-2); EOSINOPHILS % (AUTO) 1.7 % (0-6); HEMATOCRIT 32.4 % (36.0-47.0); LYMPHOCYTES % (AUTO) 19.7 % (13-45); MEAN CORPUSCULAR HEMOGLOBIN 30.3 pg (27.0-33.4); MEAN CORPUSCULAR HGB CONC 33.8 g/dL (32.0-36.0); MEAN CORPUSCULAR VOLUME 90 fl (80-97); MONOCYTES % (AUTO) 7.4 % (3-13); PLATELET COUNT 208 10^3/uL (150-450); RED BLOOD COUNT 3.62 10^6/uL (3.72-5.28); RED CELL DISTRIBUTION WIDTH 13.2 % (11.5-14.0); SEGMENTED NEUTROPHILS % (AUTO) 70.7 % (42-78); TOTAL CELLS COUNTED % (AUTO) 100 %; WHITE BLOOD COUNT 8.3 10^3/uL (4.0-10.5)
[2020-06-14 00:02] LABS: INTERNATIONAL RATION (INR) 1.11; PARTIAL THROMBOPLASTIN TIME 27.4 SEC (23.5-35.8); PROTHROMBIN TIME 14.4 SEC (11.4-15.4)
[2020-06-14 00:08] LABS: ALBUMIN 4.1 g/dL (3.5-5.0); ALKALINE PHOSPHATASE 59 U/L (38-126); ANION GAP 10 (5-19); ASPARTATE AMINO TRANSFERASE 34 U/L (14-36); BILIRUBIN,DIRECT 0.1 mg/dL (0.0-0.4); BILIRUBIN,TOTAL 1.2 mg/dL (0.2-1.3); BLOOD UREA NITROGEN 25 mg/dL (7-20); CALCIUM 9.1 mg/dL (8.4-10.2); CARBON DIOXIDE 27 mmol/L (22-30); CHLORIDE 99 mmol/L (98-107); CREATINE KINASE 118 U/L (30-135); GLUCOSE 141 mg/dL (75-110); POTASSIUM 4.4 mmol/L (3.6-5.0); TOTAL PROTEIN 6.9 g/dL (6.3-8.2)
[2020-06-14 00:17] LABS: CREATINE KINASE MB 0.88 ng/mL (<4.55)
[2020-06-14 00:18] LABS: TROPONIN I < 0.012 ng/mL
--- NOTE | 2020-06-14 00:51 | RADIOLOGY REPORT (SQ) ---
EXAM DESCRIPTION: XR CHEST 1 VIEW COMPLETED DATE/TME: 06/13/2020 23:47 CLINICAL HISTORY: 64 years, Female, altered mental status COMPARISON: 12/26/2016 chest NUMBER OF VIEWS: 1 TECHNIQUE: Portable chest LIMITATIONS: None. FINDINGS: The heart size is normal. Atheromatous change of the thoracic aorta. The lungs are clear. There is no pneumothorax IMPRESSION: No acute cardiopulmonary process copyright 2010 [employer]- All Rights Reserved
--- NOTE | 2020-06-14 00:55 | RADIOLOGY REPORT (SQ) ---
EXAM: CT head without IV contrast CLINICAL DATA: altered mental status TECHNICAL DATA: Multiple axial CT images of the brain were performed followed by sagittal and coronal reconstructed images. The CT study is performed according to ALARA (as low as reasonably achievable) or ALARA/IMAGE GENTLY, with automatic adjustment of mA and/or kV according to patient size. Performed on: 06/14/2020 at 12:16 AM Comparisons: 02/27/2016. FINDINGS: There is no evidence of mass, acute mass effect or midline shift. There are no acute extra-axial fluid collections. There is no evidence of acute intracranial hemorrhage. The cerebral sulci and ventricles are normal in size and configuration. There are no focal abnormal areas of increased or decreased attenuation. There is no significant mucosal thickening of the paranasal sinuses. The mastoid air cells are clear. The orbital contents are grossly unremarkable. No acute osseous abnormalities are identified. No focal soft tissue abnormalities are identified. There are calcifications along the cavernous carotid arteries bilaterally IMPRESSION: There is no evidence of acute intracranial pathology. No significant interval change when compared to the prior study.
[2020-06-14 01:19] LABS: APPEARANCE,URINE CLEAR; BILIRUBIN,URINE NEGATIVE (NEGATIVE); COLOR,URINE YELLOW; GLUCOSE, URINE NEGATIVE (NEGATIVE); KETONES,URINE NEGATIVE (NEGATIVE); LEUKOCYTE ESTERASE,URINE NEGATIVE (NEGATIVE); NITRITE,URINE NEGATIVE (NEGATIVE); PROTEIN,URINE NEGATIVE (NEGATIVE); URINE SPECIFIC GRAVITY 1.011; UROBILINOGEN,URINE NEGATIVE mg/dL (<2.0)
[2020-06-14 02:04] LABS: URINE AMPHETAMINES SCREEN NEGATIVE; URINE BARBITURATES SCREEN NEGATIVE; URINE BENZODIAZEPINES SCREEN NEGATIVE; URINE COCAINE SCREEN NEGATIVE; URINE METHADONE SCREEN NEGATIVE; URINE PHENCYCLIDINE SCREEN NEGATIVE
[2020-06-14 02:05] LABS: URINE MARIJUANA (THC) SCREEN UNCONFIRMED POSITIVE
[2020-06-14 05:22] VITALS: BP 117/65
--- NOTE | 2020-06-14 09:37 | EKG REPORT ---
SEVERITY:- NORMAL ECG - SINUS RHYTHM : Confirmed by: Vipin Stubbs 14-Jun-2020 09:37:01
== END 2020-06-14 05:23 | disposition home or self-care (01) ==
LOC: ER 23:00
DX: T40.7X1A Poisoning by cannabis (derivatives), accidental (unintentional), initial encounter (principal); F41.9 Anxiety disorder, unspecified; R41.0 Disorientation, unspecified; R25.1 Tremor, unspecified; F17.200 Nicotine dependence, unspecified, uncomplicated; I10 Essential (primary) hypertension; E11.9 Type 2 diabetes mellitus without complications; Z88.8 Allergy status to other drugs, medicaments and biological substances; Z88.6 Allergy status to analgesic agent; Z88.5 Allergy status to narcotic agent
CPT/HCPCS: 93005; 99285; 36415; 82553; 82550; 85025; 85610; 85730; 80053; 81001; 84484; 80307; 71045; 70450; 93010; J7030